=== PATIENT | male | born 1970 | race Caucasian/White ===

== ENCOUNTER 2016-12-22 02:39 | Emergency (ER) | payer MEDICAID ==
[~2016-12-22] VITALS: Ht 175.3 cm; Wt 92.4 kg
[2016-12-22 02:40] VITALS: BP 178/122
[2016-12-22] MEDS ORDERED: ASPI1TAB30 PO (03:00)
[2016-12-22] MEDS ORDERED: KETOROLAC 30 MG/1 ML ONE (03:17)
[2016-12-22] MEDS ORDERED: PROCHLORPERAZINE 5 MG/ML, 2ML ONE (03:17)
[2016-12-22 03:21] LABS: HEMOGLOBIN 16.7 g/dL (13.7-18.0)
[2016-12-22] MEDS ORDERED: PROCHLORPERAZINE 5 MG/ML, 2ML IVPush ONE (03:30)
[2016-12-22] MEDS ORDERED: SODIUM CHLORIDE FLUSH 10ML SYR IVF ONE (03:30)
[2016-12-22] MEDS ORDERED: SODIUM CHLORIDE 0.9% 1,000ML IVBOLUS ONE (03:30)
[2016-12-22] MEDS ORDERED: KETOROLAC 30 MG/1 ML IVPush ONE (03:30)
[2016-12-22 03:36] LABS: ASPARTATE AMINO TRANSFERASE 16 U/L (15-37); BLOOD UREA NITROGEN 9 mg/dL (7-18)
== END 2016-12-22 04:17 | disposition home or self-care (01) ==
LOC: ED 03:57
DX: R51 Headache (principal)
CPT/HCPCS: 36415; 70450; 80053; 85025; 96361; 96374; 96375; 99285; J0780; J1885; J7030

== ENCOUNTER 2017-02-27 00:08 | Emergency (ER) | payer SELFPAY ==
[~2017-02-27] VITALS: Ht 175.3 cm; Wt 94.1 kg
[~2017-02-27 00:08] MED LIST: ASPI1TAB30 PO
[2017-02-27] MEDS ORDERED: DEXAMETHASONE 4 MG/ML, 5ML ONE (00:49)
[2017-02-27] MEDS ORDERED: PROCHLORPERAZINE 5 MG/ML, 2ML ONE (00:49)
[2017-02-27] MEDS ORDERED: PROCHLORPERAZINE 5 MG/ML, 2ML IVPush ONE (01:00)
[2017-02-27] MEDS ORDERED: DEXAMETHASONE 4 MG/ML, 1ML IVPush ONE (01:00)
[2017-02-27] MEDS ORDERED: SODIUM CHLORIDE 0.9% 1,000ML IVBOLUS ONE (01:00)
[2017-02-27] MEDS ORDERED: MAGNESIUM SULFATE PMX 2GM/50ML 50 ML IV ONE (01:00)
[2017-02-27] MEDS ORDERED: LORazepam 2 MG/ML, 1ML ONE (01:32)
[2017-02-27] MEDS ORDERED: LORazepam 2 MG/ML, 1ML IVPush ONE (02:00)
[2017-02-27 04:06] VITALS: BP 174/93
== END 2017-02-27 04:09 | disposition home or self-care (01) ==
LOC: ED 00:30
DX: R51 Headache (principal); I10 Essential (primary) hypertension; Z88.8 Allergy status to other drugs, medicaments and biological substances
CPT/HCPCS: 93005; 96365; 96366; 96375; 99285; J0780; J1100; J2060; J3475; J7030

== ENCOUNTER 2017-03-05 00:30 | Emergency (ER) | payer SELFPAY | END 2017-03-05 10:09 | disposition home or self-care (01) | LOC: ED 01:03 | DX: R51 Headache (principal); Z53.21 Procedure and treatment not carried out due to patient leaving prior to being seen by health care provider ==

== ENCOUNTER 2017-09-10 11:34 | Emergency (ER) | payer SELFPAY ==
[~2017-09-10] VITALS: Ht 175.3 cm; Wt 92.0 kg
[~2017-09-10 11:34] MED LIST changes: -ASPI1TAB30 PO; +ASPI1TAB31 PO
[2017-09-10 14:00] LABS: HEMATOCRIT 56.6 % (39.2-51.8); HEMOGLOBIN 19.2 g/dL (13.7-18.0); WHITE BLOOD COUNT 14.1 x10^3/uL (3.4-10)
[2017-09-10] MEDS ORDERED: ONDANSETRON 2MG/ML, 2ML IVPush ONE (14:00)
[2017-09-10] MEDS ORDERED: SODIUM CHLORIDE FLUSH 10ML SYR IVF ONE (14:00)
[2017-09-10 14:10] LABS: ASPARTATE AMINO TRANSFERASE 23 U/L (15-37); BLOOD UREA NITROGEN 11 mg/dL (7-18)
[2017-09-10 14:15] LABS: IS PT STATUS REG ER OR PRE ER? YES
[2017-09-10] MEDS ORDERED: ONDANSETRON 2MG/ML, 2ML ONE (14:20)
[2017-09-10 14:29] VITALS: BP 169/113
[2017-09-10] MEDS ORDERED: METOCLOPRAMIDE 5 MG/ML, 2ML IVPush ONE (15:00)
[2017-09-10] MEDS ORDERED: FAMOTIDINE 20 MG/2 ML IVP ONE (15:00)
[2017-09-10] MEDS ORDERED: METOCLOPRAMIDE 5 MG/ML, 2ML ONE (15:04)
[2017-09-10] MEDS ORDERED: FAMOTIDINE 20 MG/2 ML ONE (15:04)
== END 2017-09-10 16:05 | disposition home or self-care (01) ==
LOC: ED 15:00
DX: D72.829 Elevated white blood cell count, unspecified (principal); D75.1 Secondary polycythemia; I10 Essential (primary) hypertension; R11.2 Nausea with vomiting, unspecified
CPT/HCPCS: 36415; 71010; 74020; 80053; 81001; 84484; 85025; 85610; 85730; 93005; 96374; 96375; 99285; J2405; J2765; S0028

== ENCOUNTER 2018-01-15 01:42 | Emergency (ER) | payer SELFPAY ==
[~2018-01-15] VITALS: Ht 172.7 cm; Wt 90.0 kg
[2018-01-15 01:43] VITALS: BP 153/97
[2018-01-15] MEDS ORDERED: HYDROcodone/APAP 5/325 TABLET PO ONE (02:00)
[2018-01-15] MEDS ORDERED: HYDROcodone/APAP 5/325 TABLET ONE (02:07)
== END 2018-01-15 03:30 | disposition home or self-care (01) ==
LOC: ED 03:25
DX: S60.221A Contusion of right hand, initial encounter (principal); I10 Essential (primary) hypertension; W10.9XXA Fall (on) (from) unspecified stairs and steps, initial encounter; Y93.89 Activity, other specified; Y92.89 Other specified places as the place of occurrence of the external cause; Y99.8 Other external cause status
CPT/HCPCS: 99284

== ENCOUNTER 2019-04-07 01:20 | Emergency (ER) | payer MEDICAID, OTHER ==
[~2019-04-07] VITALS: Ht 175.3 cm; Wt 99.2 kg
[2019-04-07 05:28] VITALS: BP 172/109
== END 2019-04-07 05:57 | disposition home or self-care (01) ==
LOC: ED 05:50
DX: G44.019 Episodic cluster headache, not intractable (principal); G43.909 Migraine, unspecified, not intractable, without status migrainosus; F17.210 Nicotine dependence, cigarettes, uncomplicated
CPT/HCPCS: 36415; 70450; 70496; 80053; 80307; 85025; 96372; 96374; 96375; 99284; J1170; J2270; J2405; J2550; J7030; Q9967

== ENCOUNTER 2019-04-10 01:36 | Emergency (ER) | payer MEDICAID, OTHER ==
[~2019-04-10] VITALS: Ht 175.3 cm; Wt 101.0 kg
[2019-04-10 02:55] VITALS: BP 142/100
== END 2019-04-10 03:15 | disposition home or self-care (01) ==
LOC: ED 03:00
DX: G44.039 Episodic paroxysmal hemicrania, not intractable (principal); I10 Essential (primary) hypertension; F17.200 Nicotine dependence, unspecified, uncomplicated
CPT/HCPCS: 96374; 96375; 99283; J0780; J1885

== ENCOUNTER 2019-04-17 03:44 | Emergency (ER) | payer MEDICAID, OTHER ==
[~2019-04-17] VITALS: Ht 175.3 cm; Wt 99.2 kg
[2019-04-17] MEDS ORDERED: MAGNESIUM SULFATE PMX 2GM/50ML 50 ML IV ONE (04:30)
[2019-04-17] MEDS ORDERED: DEXAMETHASONE 4 MG/ML, 1ML IVPush ONE (04:30)
[2019-04-17] MEDS ORDERED: KETOROLAC 30 MG/1 ML IVPush ONE (04:30)
[2019-04-17] MEDS ORDERED: METOCLOPRAMIDE 5 MG/ML, 2ML IVPush ONE (04:30)
[2019-04-17] MEDS ORDERED: MAGNESIUM SULFATE PMX 2GM/50ML 50 ML ONE (04:31)
[2019-04-17] MEDS ORDERED: METOCLOPRAMIDE 5 MG/ML, 2ML ONE (04:31)
[2019-04-17] MEDS ORDERED: KETOROLAC 30 MG/1 ML ONE (04:31)
[2019-04-17] MEDS ORDERED: DEXAMETHASONE 4 MG/ML, 5ML ONE (04:31)
[2019-04-17] MEDS ORDERED: LORazepam 2 MG/ML, 1ML IVPush ONE (05:00)
[2019-04-17] MEDS ORDERED: LORazepam 2 MG/ML, 1ML ONE (05:05)
[2019-04-17 06:24] VITALS: BP 188/111
== END 2019-04-17 06:33 | disposition home or self-care (01) ==
LOC: ED 04:00
DX: G44.029 Chronic cluster headache, not intractable (principal); G43.909 Migraine, unspecified, not intractable, without status migrainosus; F17.200 Nicotine dependence, unspecified, uncomplicated; G35 Multiple sclerosis
CPT/HCPCS: 96365; 96375; 99283; J1100; J1885; J2060; J2765; J3475

== ENCOUNTER 2020-04-17 18:00 | Emergency (ER) | payer MEDICAID ==
[~2020-04-17] VITALS: Ht 170.2 cm; Wt 100.3 kg
[2020-04-17 18:05] VITALS: BP 147/103
--- NOTE | 2020-04-17 18:54 | NUR ---
pt to room from lobby
[2020-04-17] MEDS ORDERED: ONDANSETRON 2MG/ML, 2ML IVPush ONE (20:00)
[2020-04-17] MEDS ORDERED: HYDROmorphone 2 MG/ML, 1ML IVPush PRN (20:00)
[2020-04-17] MEDS ORDERED: SODIUM CHLORIDE FLUSH 10ML SYR IVF ONE (20:00)
[2020-04-17] MEDS ORDERED: HYDROmorphone 1 MG/ML, 1ML INJ ONE (20:01)
[2020-04-17] MEDS ORDERED: ONDANSETRON 2MG/ML, 2ML ONE (20:01)
--- NOTE | 2020-04-17 20:15 | NUR ---
PIV PLACED, MEDICATED PER EMAR
[2020-04-17 20:34] LABS: BASOPHILS # (AUTO) 0.01 x10^3/uL (0-0.1); BASOPHILS % (AUTO) 0 % (0-1); EOSINOPHILS # (AUTO) 0.23 x10^3/uL (0-0.4); EOSINOPHILS % (AUTO) 3 % (1-7); LYMPHOCYTES # (AUTO) 1.76 x10^3/uL (1-3.4); LYMPHOCYTES % (AUTO) 22 % (22-44); MD NO; MEAN CORPUSCULAR HEMOGLOBIN 30.9 pg (27.5-34.5); MEAN CORPUSCULAR HGB CONC 31.9 g/dL (33.2-36.2); MEAN CORPUSCULAR VOLUME 96.7 fL (81-97); MEAN PLATELET VOLUME 7.8 fL (7.4-10.4); MONOCYTES # (AUTO) 0.72 x10^3/uL (0.2-0.8); MONOCYTES % (AUTO) 9 % (2-9); NEUTROPHILS # (AUTO) 5.28 x10^3/uL (1.8-6.8); NEUTROPHILS % (AUTO) 66 % (42-75); PLATELET COUNT 200 x10^3/uL (130-400); RED BLOOD COUNT 6.18 x10^6/uL (4.38-5.82); RED CELL DISTRIBUTION WIDTH 14.9 % (9.4-14.8)
[2020-04-17 20:41] LABS: ALBUMIN 3.6 g/dL (3.4-5.0); ANION GAP 3 mmol/L (5-15); CALCIUM 9.8 mg/dL (8.5-10.1); CHLORIDE 108 mmol/L (98-107); CREATININE 1.06 mg/dL (0.7-1.3)
--- NOTE | 2020-04-17 20:55 | NUR ---
UA COLLECTED AND SENT
[2020-04-17 21:03] LABS: MICROSCOPIC NOT IND
== END 2020-04-17 22:33 | disposition home or self-care (01) ==
LOC: ED 22:10
DX: M41.86 Other forms of scoliosis, lumbar region (principal); I10 Essential (primary) hypertension; G43.909 Migraine, unspecified, not intractable, without status migrainosus; F17.200 Nicotine dependence, unspecified, uncomplicated; W01.0XXA Fall on same level from slipping, tripping and stumbling without subsequent striking against object, initial encounter; Y93.89 Activity, other specified; Y92.89 Other specified places as the place of occurrence of the external cause; Y99.8 Other external cause status
CPT/HCPCS: 36415; 72100; 80048; 81003; 82040; 85025; 96374; 96375; 99284; J1170; J2405